=== PATIENT | female | born 1960 | race Caucasian/White ===

== ENCOUNTER 2025-05-21 08:47 | Observation (INO) ==
--- NOTE | 2025-05-21 09:38 | Emergency Department Note ---
History of Present Illness General Chief complaint: Back Injury/Pain Stated complaint: SCIATICA PAIN,RIGHT SIDE,WORSE WITH NO TREATMENT Time Seen by Provider: 05/21/25 09:20 History of Present Illness Maximum Pain Intensity: 8 This is a 65-year-old female who presents to the emergency department via private vehicle with complaints of "right low back pain". The patient notes this past September, she began with pain to the right posterior gluteal area. No trauma or injury reported. She states that the pain has been progressively worsening since that time. She notes imaging to include MRI of the low back as well as electromyelogram. She also has undergone injections to the area. She is currently on her third prednisone taper at the present time. She notes pain is worse with sitting, standing and walking beyond just a few minutes. She notes a hard time finding a comfortable position to sit or lay. She notes the pain is in the right gluteal area and wraps around to the right hip/right inguinal/groin region on the right. It also radiates down the right leg to the toes with associated numbness/tingling depending on position, particular with weightbearing. The patient has started physical therapy and notes continued pain. She is to a point now where she notes pain is severe and is not improving. She took Tylenol at home around 5 AM. Last bowel movement was on Tuesday. She denies any associated fevers, chills, nausea or vomiting. There is no abdominal pain Home Medications Medication Instructions Recorded Confirmed Type cyclosporine 0.05 % eye drops in a 1 drp OPB Q12H 09/05/24 05/21/25 History dropperette (Restasis) latanoprost 0.005 % eye drops 1 drp OPB HS 09/05/24 05/21/25 History duloxetine 20 mg capsule,delayed 20 mg PO DAILY #90 caps 03/06/25 05/21/25 Rx release chlorthalidone 25 mg tablet 6.25 mg (1/4 x 25 mg) PO DAILY #45 04/17/25 05/21/25 Rx tabs acetaminophen 500 mg tablet 500 mg PO Q6H PRN Pain 05/21/25 05/21/25 History prednisone 20 mg tablet 20 mg PO DIRECTED 05/21/25 05/21/25 History Allergies Allergy/AdvReac Type Severity Reaction Status Date / Time No Known Drug Allergies Allergy Intermediate Unknown Verified 05/21/25 11:40 Past Med/Surg History Problem List (Updated 05/21/25 @ 18:01 by Victoriano Arellano PA-C) Intractable low back pain (Acute) Right lumbar radiculopathy (Acute) Myofascial pain Piriformis syndrome Hypercalciuria Lumbar radiculopathy Glaucoma Osteoporosis Prediabetes Medical History Nose fracture Ankle fracture (07/23/22) Surgical History H/O breast biopsy H/O colonoscopy Family History Sister Diabetes Mother Family history of skin conditions Social History Smoking Status: Never smoker Hx Alcohol Use: No Hx Substance Use: No Preferred Language: Hebrew Communication Ability: Effective Acting Professor Required: No Beliefs That Will Affect Care: None Current Living Situation: Significant Other current occupational status: retired current occupation: [employer], [employer] Other Information That Helps Us Care for You: No Feels Safe at Home: Yes Safety Concerns: Feels Safe At This Time Seatbelt Use: always Review of Systems A total of 10 systems reviewed and were otherwise negative Physical Exam Vital Signs Vital Signs - 24 hr 05/21/25 08:50 05/21/25 11:37 Temperature 36.5 C Temperature Source Temporal Artery Scan Pulse Rate 113 H Pulse Rate [Left Apical] 80 Respiratory Rate 19 16 Respiratory Effort / Characteristics Non-Labored Spontaneous Non-Labored Spontaneous Respiratory Depth Normal Normal Respiratory Pattern Regular Blood Pressure 149/72 H Blood Pressure [Left Arm] 144/64 H Blood Pressure Mean 97 Blood Pressure Mean [Left Arm] 90 Blood Pressure Position Sitting Blood Pressure Position [Left Arm] Lying Pulse Oximetry 97 94 Oxygen Delivery Method Room Air Room Air Sepsis Recent Fever Within 48 Hours No Sepsis New/Unexplained Change in Mental Status No Sepsis Action Taken by Nursing No Action Required VITAL SIGNS - Vital signs and nursing notes were reviewed. Tachycardic at 113, otherwise stable and afebrile. GENERAL -65-year-old female appearing her stated age who is in no acute distress. Communicates well with provider and answers questions appropriately. SKIN - Without rashes. No meningeal or petechial rash. HEAD - NC/AT. EYES - PERRL with EOMI bilaterally. Sclera anicteric. EARS - No deformities of external structures noted on gross examination bilaterally. NOSE - Midline and without cyanosis. No epistaxis or purulent drainage noted. MOUTH/OROPHARYNX - Without perioral cyanosis. NECK - Neck with FROM. No nuchal rigidity. LUNGS - Chest wall symmetric without accessory muscle use, intercostals retractions, or central cyanosis. Normal vesicular breath sounds CTA B/L. No wheezes, rales, or rhonchi appreciated. CARDIAC - RRR ABDOMEN - Abdominal contour normal without pulsations or visible masses. BS normoactive all four quadrants. No tenderness, palpable masses, hepatosplenomegaly, or ascites noted. EXTREMITIES - No clubbing or peripheral cyanosis. Patient is able to stand and axial load but slow to move. +5/5 strength noted in UE/LE bilaterally. Patient able to plantarflex and dorsiflex the bilateral feet/ankles actively. No dropfoot MSKthere is no reproducible tenderness overlying the right gluteal area, right low back, spinous processes of the C, T or L-spine or right hip/groin area. NEUROLOGIC - Cranial nerves II through XII grossly intact. PSYCH -alert, oriented and pleasant on exam Course Administered Medications Artificial Tears (Artificial Tears) 1 drops OP Q12H [facility] Stop: 06/20/25 12:44 Last Admin: 05/21/25 13:29 Dose: Not Given Documented By: ELANA Morphine Sulfate (Morphine Sulfate 2 Mg/Ml Carp) 2 mg IV Q2H PRN PRN Reason: Pain rated 4-10 Stop: 06/04/25 12:22 Last Admin: 05/21/25 16:34 Dose: 2 mg Documented By: YAZMIN Discontinued Medications Docusate Sodium (Docusate Sodium 100 Mg Cap) 100 mg PO NOW ONE Stop: 05/21/25 12:25 Last Admin: 05/21/25 13:21 Dose: 100 mg Documented By: ELANA Duloxetine HCl (Duloxetine Hcl 20 Mg Cap) 20 mg PO DAILY JANETTE Stop: 06/20/25 12:29 Last Admin: 05/21/25 13:29 Dose: Not Given Documented By: ELANA Lidocaine (Lidocaine 5% 1 Patch) 1 patch TD NOW STA Stop: 05/21/25 09:33 Last Admin: 05/21/25 09:41 Dose: 1 patch Documented By: ELANA Morphine Sulfate (Morphine Sulfate 2 Mg/Ml Carp) 2 mg IV NOW STA Stop: 05/21/25 09:35 Last Admin: 05/21/25 09:41 Dose: 2 mg Documented By: ELANA Morphine Sulfate (Morphine Sulfate 2 Mg/Ml Carp) 2 mg IV NOW STA Stop: 05/21/25 11:20 Last Admin: 05/21/25 13:15 Dose: 2 mg Documented By: ELANA Ondansetron HCl (Ondansetron Inj 2 Mg/Ml 2 Ml Vial) 4 mg IV NOW STA Stop: 05/21/25 09:35 Last Admin: 05/21/25 09:42 Dose: 4 mg Documented By: ELANA Medical Decision Making Laboratory Data 05/21/25 09:39 05/21/25 09:39 Lab Results 05/21/25 Range/Units 09:39 WBC 10.30 (4.8-10.8) K/ul RBC 4.85 (4.20-5.40) M/uL Hgb 15.1 (12.0-16.0) g/dl Hct 42.9 (37.0-47.0) % MCV 88.5 (80.0-100.0) fL MCH 31.1 (25.0-34.0) pg MCHC 35.2 (32.0-36.0) g/dL RDW Std Deviation 48.6 H (36.4-46.3) fL RDW Coeff of Christiano 14.9 H (11.5-14.5) % Plt Count 363 (130-400) K/uL MPV 8.6 L (9.4-12.4) fL Immature Gran % (Auto) 1.0 % Neut % (Auto) 76.1 % Lymph % (Auto) 18.5 % [place] % (Auto) 3.7 % Eos % (Auto) 0.3 % Baso % (Auto) 0.4 % Neut # (Auto) 7.84 H (1.40-6.50) K/uL Lymph # (Auto) 1.91 (1.20-3.40) K/uL [place] # (Auto) 0.38 (0.11-0.59) K/uL Eos # (Auto) 0.03 (0.00-0.50) K/uL Baso # (Auto) 0.04 (0.00-0.20) K/uL Immature Gran # (Auto) 0.10 (0.01-0.20) K/uL Sodium 136 (136-145) mmol/L Potassium 3.5 (3.5-5.1) mmol/L Chloride 101 (98-107) mmol/L Carbon Dioxide 27 (21-32) mmol/L Anion Gap 8 (3-11) BUN 12 (6-23) mg/dl Creatinine 0.82 (0.6-1.2) mg/dl Est Cr Clr Drug Dosing 63.8 ml/min eGFR 79.33 BUN/Creatinine Ratio 14.6 (10-20) Glucose 118 H (70-99(Fasting)) mg/dl Calcium 9.7 (8.6-10.3) mg/dl Magnesium 2.3 (1.7-2.4) mg/dl Total Bilirubin 0.4 (0.2-1.0) mg/dl AST 22 (13-39) U/L ALT 29 (7-52) U/L Alkaline Phosphatase 53 (34-104) U/L Total Protein 7.4 (6.0-8.3) gm/dl Albumin 4.2 (3.4-5.0) gm/dl Globulin 3.2 (2.5-4.0) gm/dl Albumin/Globulin Ratio 1.3 (0.9-2) Urine Color Yellow Urine Appearance Clear (Clear) Urine pH 7.5 (4.5-7.5) Ur Specific [place] 1.002 (1.000-1.030) Urine Protein Negative (Negative) Urine Glucose (UA) Negative (Negative) Urine Ketones Negative (Negative) Urine Blood Negative (Negative) Urine Nitrite Negative (Negative) Urine Bilirubin Negative (Negative) Urine Urobilinogen Negative (Negative) Ur Leukocyte Esterase Negative (Negative) Urine Comment Imaging Data Radiologist's Impression: Lumbar Spine CT 05/21/25 09:32 CT lumbar spine wo con HISTORY: 65 years-old Female R hip/gluteal/groin pain into R leg acute pain of the low back and pelvis COMPARISON: CT pelvis of same day, MRI lumbar spine January 05, 2025 TECHNIQUE: Multiple axial CT images of the lumbar spine were obtained without IV contrast. A dose lowering technique was used consistent with the principals of ALARA. FINDINGS: Mild chronic L3 compression deformity. Mostly mild multilevel intervertebral disc space narrowing with spondylitic spurring and moderate to severe facet arthrosis are demonstrated contributing to cause mild central canal stenosis lower lumbar spine. No high-grade central canal or foraminal narrowing identified by CT. The imaged intra-abdominal structures appear unremarkable. Mild degeneration of the SI joints. No acute fracture or subluxation. IMPRESSION: 1. No acute fracture or subluxation. 2. Multilevel degenerative changes of the lumbar spine redemonstrated. 3. Mild chronic L3 compression deformity without retropulsion. ACT 112: Negative or not required by law. The above report was generated using voice recognition software. It may contain grammatical, syntax or spelling errors. Electronically signed by: Lowell Chaudhary M.D. 05/21/2025 10:[address] 05/21/25 09:32 CT SCAN OF THE PELVIS WITHOUT IV CONTRAST CLINICAL HISTORY: Right hip and gluteal pain. Right groin pain. COMPARISON STUDY: Pelvic ultrasound dated 02/22/2007 TECHNIQUE: CT scan of the bony pelvis is performed from the pelvic inlet to the proximal femora. Images are reviewed in the axial, sagittal, and coronal planes. IV contrast was not administered for this examination. A dose lowering technique was utilized adhering to the principles of ALARA. Note that interpretation is suboptimal without plain film correlate. FINDINGS: The skeletal structures are osteopenic. There is no evidence of acute fracture involving the hips or bony pelvis. There is no avascular necrosis of the femoral heads. Minimal degenerative change is seen in the hips. There is mild degenerative sclerosis of the sacroiliac joints. No lytic or blastic lesion is seen. The regional musculature is normal and symmetric. The bladder is distended but otherwise normal as imaged. The uterus is normal as visualized. There is a 2.8 x 1.6 cm calcified structure in the left adnexa seen on axial image #68 of 126. This appears localized to the left ovary. The right ovary is normal as visualized. There is no free fluid in the pelvis. Imaged portions of the small bowel and colon show no abnormality. There is no pelvic sidewall or inguinal lymphadenopathy. IMPRESSION: 1. No acute bony abnormality is identified. 2. There is a 2.8 cm calcified left adnexal structure which likely represents the left ovary, or less likely a pedunculated fibroid. The left ovary was normal in appearance on a 2006 pelvic ultrasound and this is of indeterminate etiology and significance. A nonemergent pelvic ultrasound is recommended in follow-up. ACT 112: Positive. There are findings on this exam that require communication between the performing entity and the patient following Patient Test Result Information Act ([place] Act 112) guidelines. Electronically signed by: Casey Newell M.D. 05/21/2025 10:29 AM MDM Narrative Patient was seen and evaluated as above in room C04. Review was performed of triage nursing notes and vital signs. I did review pertinent visits and patient history. After obtaining a thorough history and physical examination the above work up was performed. Patient presents to us today for evaluation of right gluteal pain that radiates down the leg. No trauma. No injury. The patient is well-appearing and nontoxic on exam but appears to be in pain. Patient denies any lower extremity weakness, bowel or bladder incontinence, numbness or tingling in the genital region. I reviewed the patient's outpatient electromyelogram dated 12/31/2024. I did review the patient's outpatient L-spine MRI dated 01/05/2025. Options of care were discussed with the patient. IV access was established. Labs were drawn. IV morphine ordered for pain, Zofran for nausea. Lidocaine patch also ordered. There is no leukocytosis or concerning anemia. No emergent metabolic disturbance. Mild hyperglycemia 118. Urinalysis without evidence of infection. A CT scan was performed of the L-spine and pelvis. Results as above. I reviewed the findings and there is no fracture seen. Incidentally there is a calcified left adnexal structure which I reviewed with the patient and recommended outpatient ultrasound and follow-up. The patient has had ongoing back pain and has had multiple steroid tapers she notes. With the continued discomfort despite outpatient regimen, I did consider inpatient management. I discussed this option with the patient. We will proceed. I reviewed with the hospitalist service. They came to evaluate the patient. Please refer to further documentation regarding her stay. GCS: 15 In the evaluation and treatment of this patient the following differential diagnoses were entertained: Cauda equina syndrome, fracture, subluxation, contusion, UTI, pyelonephritis, among others. Impression & Plan Right lumbar radiculopathy, Intractable low back pain Discharge Plan Visit Data Chief Complaint: Back Injury/Pain Stated Complaint: SCIATICA PAIN,RIGHT SIDE,WORSE WITH NO TREATMENT ED Provider: Semaj Garcia ED Midlevel Provider: Victoriano Arellano Discharge Problem: Right lumbar radiculopathy, Intractable low back pain Patient Disposition: Admitted As Inpatient Condition: Good Discharge Instructions Interventions: ED Discharge Assessment Last Done: 05/21/25 13:34
[2025-05-21] MEDS: MoRPHine SULFATE 2 MG/ML CARP IV STA ×2 (09:41→13:15)
[2025-05-21] MEDS: LIDOCAINE 5% 1 PATCH TD STA (09:41)
[2025-05-21] MEDS: ONDANSETRON INJ 2 MG/ML 2 ML VIAL IV STA (09:42)
[2025-05-21 10:01] LABS: Hematocrit (blood only) 42.9 % (37.0-47.0); Hemoglobin 15.1 g/dl (12.0-16.0); Immature Granulocytes # (auto) 0.10 K/uL (0.01-0.20); Immature Granulocytes % (auto) 1.0 %; Mean Corpuscular Hemoglobin 31.1 pg (25.0-34.0); Mean Corpuscular Volume 88.5 fL (80.0-100.0); Platelet Count 363 K/uL (130-400); RDW Standard Deviation 48.6 fL (36.4-46.3); Red Blood Count 4.85 M/uL (4.20-5.40); White Blood Count 10.30 K/ul (4.8-10.8)
[2025-05-21 10:06] LABS: Appearance Urine Clear (Clear); Glucose Urine UA Negative (Negative)
[2025-05-21 10:17] LABS: Alanine Aminotransferase 29.0 U/L (7-52); Albumin Globulin Ratio 1.3 (0.9-2); Alkaline Phosphatase 53.0 U/L (34-104); Anion Gap 8.0 (3-11); Bilirubin,Total 0.4 mg/dl (0.2-1.0); Blood Urea Nitrogen 12.0 mg/dl (6-23); Calcium 9.7 mg/dl (8.6-10.3); Carbon Dioxide 27.0 mmol/L (21-32); Chloride 101.0 mmol/L (98-107); Creatinine Clr Calc Pharmacy 63.8 ml/min; Globulin 3.2 gm/dl (2.5-4.0); Glucose 118.0 mg/dl (70-99(Fasting)); Magnesium 2.3 mg/dl (1.7-2.4); Potassium 3.5 mmol/L (3.5-5.1); Sodium 136.0 mmol/L (136-145); Total Protein 7.4 gm/dl (6.0-8.3)
--- NOTE | 2025-05-21 10:32 | CT Scan Report ---
CT SCAN OF THE PELVIS WITHOUT IV CONTRAST CLINICAL HISTORY: Right hip and gluteal pain. Right groin pain. COMPARISON STUDY: Pelvic ultrasound dated 02/22/2007 TECHNIQUE: CT scan of the bony pelvis is performed from the pelvic inlet to the proximal femora. Ban ges are reviewed in the axial, sagittal, and coronal planes. IV contrast was not administered for thi s examination. A dose lowering technique was utilized adhering to the principles of ALARA. Note that interpretation is suboptimal without plain film correlate. FINDINGS: The skeletal structures are osteopenic. There is no evidence of acute fracture involving th e hips or bony pelvis. There is no avascular necrosis of the femoral heads. Minimal degenerative dennison ge is seen in the hips. There is mild degenerative sclerosis of the sacroiliac joints. No lytic or bl astic lesion is seen. The regional musculature is normal and symmetric. The bladder is distended but otherwise normal as imaged. The uterus is normal as visualized. There is a 2.8 x 1.[address]ified str ucture in the left adnexa seen on axial image #68 of 126. This appears localized to the left ovary. T he right ovary is normal as visualized. There is no free fluid in the pelvis. Imaged portions of the small bowel and colon show no abnormality. There is no pelvic sidewall or inguinal lymphadenopathy. IMPRESSION: 1. No acute bony abnormality is identified. 2. There is a 2.8 cm calcified left adnexal structure which likely represents the left ovary, or less likely a pedunculated fibroid. The left ovary was normal in appearance on a 2006 pelvic ultrasound a nd this is of indeterminate etiology and significance. A nonemergent pelvic ultrasound is recommended in follow-up. ACT 112: Positive. There are findings on this exam that require communication between the performing entity and the patient following Patient Test Result Information Act ([place] Act 112) guidelines. Electronically signed by: Casey Newell M.D. 05/21/2025 10:29 AM
--- NOTE | 2025-05-21 10:41 | CT Scan Report ---
CT lumbar spine wo con HISTORY: 65 years-old Female R hip/gluteal/groin pain into R leg acute pain of the low back and pelv is COMPARISON: CT pelvis of same day, MRI lumbar spine January 05, 2025 TECHNIQUE: Multiple axial CT images of the lumbar spine were obtained without IV contrast. A dose low ering technique was used consistent with the principals of AMARILIS. FINDINGS: Mild chronic L3 compression deformity. Mostly mild multilevel intervertebral disc space narrowing wit h spondylitic spurring and moderate to severe facet arthrosis are demonstrated contributing to cause mild central canal stenosis lower lumbar spine. No high-grade central canal or foraminal narrowing id entified by CT. The imaged intra-abdominal structures appear unremarkable. Mild degeneration of the SI joints. No acu te fracture or subluxation. IMPRESSION: 1. No acute fracture or subluxation. 2. Multilevel degenerative changes of the lumbar spine redemonstrated. 3. Mild chronic L3 compression deformity without retropulsion. ACT 112: Negative or not required by law. The above report was generated using voice recognition software. It may contain grammatical, syntax o r spelling errors. Electronically signed by: Lowell Chaudhary M.D. 05/21/2025 10:39 AM
[2025-05-21] MEDS: DOCUSATE SODIUM 100 MG CAP PO ONE (13:21)
[2025-05-21] MEDS: ARTIFICIAL TEARS OP SCH (13:29)
[2025-05-21] MEDS: MoRPHine SULFATE 2 MG/ML CARP IV PRN (16:34)
--- NOTE | 2025-05-21 18:02 | History & Physical Report ---
Date of Service May 21, 2025 Assessment & Plan (1) Intractable low back pain: Plan: As above in the History of Present Illness. (2) Left streak ovary: Plan: As above in the History of Present Illness. 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 On October 10, 2024, the day before 2023, I felt a pain in my right butt. I did not fall down. I did not bump into anything or hit anything, and nothing bumped into me or hit me in my right butt. Still, I could not walk because of that pain in my right but. So, on October 22, 2024, I got a prescription for prednisone 10mg a day from my PCP Dr. Ambreen Walker, and that helped me for a while. Then, the pain in my right butt came back. So, on January 04, 2025, I got a prescription for methylprednisolone 4mg a day from my PCP Dr. Ambreen Walker, and that helped me for a while. Then, the pain in my right butt came back. So, on January 17, 2025, I got an epidural injection in my lower back from [facility] Dr. Osbaldo Eng, and that helped me for a while. Then, the pain in my right butt came back. So, on April 17, 2025, I got 3 pain shots in my butt from [facility] Dr. Evelin Cabrera, and that helped me for a while. Then, the pain in my right butt came back and it is going down to my right foot and all of the toes in my right foot. First, my right foot and toes felt numb, now they feel tingly. I don't know if the pain in my right foot has anything to do with the fact that I have not had a bowel movement since Tuesday (May 17, 2025). Normally, I have a bowel movement every day. I do not feel any belly pain; I do not feel nauseated, and I am not having any vomit or diarrhea. I got a morphine shot (e.g., morphine 2mg IV x 1 dose on 05/21/2025, 9:41am) and that helped me a lot. The pain in my right butt was an 8 (out of 10 point intensity scale) before the morphine shot (e.g., morphine 2mg IV x 1 dose on 05/21/2025, 9:41am). Now, it is a 2 (out of 10 point intensity scale)." Primary Care Provider: Ambreen Walker DO 65 years old Kyrgyz-speaking Ethiopian female with PMH of FULL CODE @ home, overweight with BMI 27.0 (height 160.0 cm; weight 69.2 kg), who reports: "On September 14, 2024, I felt a commissary superintendent my right butt. On October 10, 2024, the day before 2023, I felt a pain in my right butt. I did not fall down. I did not bump into anything or hit anything, and nothing bumped into me or hit me in my right butt. Still, I could not walk because of that pain in my right but. So, on October 22, 2024, I got a prescription for prednisone 10mg a day from my PCP Dr. Ambreen Walker, and that helped me for a while. Then, the pain in my right butt came back. So, on January 04, 2025, I got a prescription for methylprednisolone 4mg a day from my PCP Dr. Ambreen Walker, and that helped me for a while. Then, the pain in my right butt came back. So, on January 17, 2025, I got an epidural injection in my lower back from [facility] Dr. Osbaldo Eng, and that helped me for a while. Then, the pain in my right butt came back. So, on April 17, 2025, I got 3 pain shots in my butt from [facility] Dr. Evelin Cabrera, and that helped me for a while. Then, the pain in my right butt came back and it is going down to my right foot and all of the toes in my right foot. First, my right foot and toes felt numb, now they feel tingly. I don't know if the pain in my right foot has anything to do with the fact that I have not had a bowel movement since Tuesday (May 17, 2025). Normally, I have a bowel movement every day. I do not feel any belly pain; I do not feel nauseated, and I am not having any vomit or diarrhea. I got a morphine shot (e.g., morphine 2mg IV x 1 dose on 05/21/2025, 9:41am) and that helped me a lot. The pain in my right butt was an 8 (out of 10 point intensity scale) before the morphine shot (e.g., morphine 2mg IV x 1 dose on 05/21/2025, 9:41am). Now, it is a 2 (out of 10 point intensity scale)." Patient denies antecedent/coincident fevers, chills, diaphoresis, cough, wheeze, sore throat, hemoptysis, chest pains, palpitations, pleurisy, nausea, vomiting, diarrhea, abdominal pain, pelvic pain, hematemesis, hematochezia, melena, hematuria, dysuria, frequency, urgency, headaches, dizziness, lightheadedness, visual changes, hearing changes, weakness, falls, syncope, trauma, travel history, sick contacts, or food/drug ingestions novel or new. All other review of systems are reported as negative by the patient on observation date 05/21/2025. In [facility] ER bed #C4, patient was afebrile @ 36.5 degrees Celsius, HR 113, RR 19, O2 sat 97% on room air, and BP 149/72 (05/21/2025, 8:50am). Exam was noted for positive radiculopathy on right straight leg ra ising, not left straight leg raising. In addition, patient demonstrated 5/5 motor strength in all 4 extremities, both proximally and distally, with no myoclonus, tremors, or tics. In addition, there was no perineal numbness, urinary/fecal incontinence, or decrement in 2 point discrimination with a 4mm spread on either lower extremity. Labs in [facility] ER bed #C4 included: WBC 10.3, N76 L19 M4, Hb 15.1, MCV 88.5, MCHC 35.2, platelet 363 (05/21/2025, 9:39am). Na 136, K 3.5, BUN 12, creatinine 0.82, glucose 118, Ca 9.7, Mg 2.3, AST 22, ALT 29, ALK PHOS 53, TBili 0.4 (05/21/2025, 9:39am). U/A: LE-, nitrite- (05/21/2025, 9:39am). Additional testing in [facility] ER bed #C4 included: CT lumbar spine without contrast (05/21/2025, 9:32am): 1. No acute fracture or subluxation. 2. Multilevel degenerative changes of the lumbar spine redemonstrated. 3. Mild chronic L3 compression deformity without retropulsion. CT pelvis without contrast (05/21/2025, 9:32am): 1. No acute bony abnormality is identified. 2. 2.8 cm calcified L adnexal structure likely represents the left ovary, or less likely a pedunculated fibroid. Left ovary was normal in appearance on 2006 pelvic U/S and this is of indeterminate etiology and significance. Nonemergent pelvic U/S is recommended. Patient was subsequently placed in OBSERVATION on the hospitalist service @ [facility] on 05/21/2025 with the following diagnoses: 1. Intractable right gluteal pain due to chronic L3 compression fracture. 2. Incidental finding of 2.8 cm L adnexal structure, most likely to represent L ovary. To address #1, patient was started on tylenol 650mg PO q6 prn pain 1-3, headache, temp > 100.4 degrees Fahrenheit, morphine 2mg IV q2 prn pain 4-10. Patient awaits PT/OT/Case Mgm't Service evaluations to expedite D/C to SNF for short-term rehab and continued pain management as there are no acute medical issues on observation date 05/21/2025. To address #2, patient was advised to undergo outpatient pelvic U/S, which can be coordinated with her PCP Dr. Ambreen Walker. Allergies Allergy/AdvReac Type Severity Reaction Status Date / Time No Known Drug Allergies Allergy Intermediate Unknown Verified 05/21/25 11:40 Home Medications Medication Instructions Recorded Confirmed Type cyclosporine 0.05 % eye drops in a 1 drp OPB Q12H 09/05/24 05/21/25 History dropperette (Restasis) latanoprost 0.005 % eye drops 1 drp OPB HS 09/05/24 05/21/25 History duloxetine 20 mg capsule,delayed 20 mg PO DAILY #90 caps 03/06/25 05/21/25 Rx release chlorthalidone 25 mg tablet 6.25 mg (1/4 x 25 mg) PO DAILY #45 04/17/25 05/21/25 Rx tabs acetaminophen 500 mg tablet 500 mg PO Q6H PRN Pain 05/21/25 05/21/25 History prednisone 20 mg tablet 20 mg PO DIRECTED 05/21/25 05/21/25 History Past Med/Surg History Problem List (Updated 05/21/25 @ 18:30 by Caesar Mendez MD, PhD) Left streak ovary Intractable low back pain (Acute) Right lumbar radiculopathy (Acute) Myofascial pain Piriformis syndrome Hypercalciuria Lumbar radiculopathy Glaucoma Osteoporosis Prediabetes Medical History Nose fracture Ankle fracture (07/23/22) Nondisplaced fracture of the left distal fibula, distal to the tibial plafond from a fall Surgical History H/O breast biopsy H/O colonoscopy every 5 years now. h/o polyps. Family History Sister Diabetes Mother , at 72 years of age from hayden-operative complications associated with bladder tack procedure @ [facility] ([place], [place]). Family history of skin conditions Father , at 82 years of age from acute respiratory failure due to long-standing tobacco abuse. No problems noted. 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 Physical Exam Constitutional: General: Comfortable, coherent, cooperative. Awake, alert. Not confused, lethargic, or obtunded. Patient speaks in complete, fluent, and articulate sentences without pause, interruption, cough, or wheeze. HEENT: Normocephalic, atraumatic. Pupils equally round and reactive to light. No nystagmus, gaze paresis, anisocoria, miosis, mydriasis, hyphema, scleral injection, conjunctivitis, or pterygium. No otorrhea. No pharyngeal erythema, edema, or discharge. Neck: Supple, no stridor, bruit, goiter, or hepato-jugular reflux. Jugular venous pressure is estimated to be 3 cm above the sternal angle of Renaldo, which in turn, is 5 cm above the level of the right atrium; with jugular venous pressure estimated to be 8 cm, then, there is no jugular venous distention on 05/21/2025. Lymphatics: No cervical (anterior/posterior), supraclavicular, infraclavicular, axillary, epitrochlear, or inguinal adenopathy. Chest: Symmetric rise and fall with respirations. Non-tender to palpation. Lungs: Clear to auscultation and percussion. No audible expiratory wheeze, egophony, pectoriloquy, increase in tactile fremitus, or flatness/dullness to percussion at the bases. Heart: RRR. S1 and S2 noted. No S3 or S4 summation gallop. No tripartite friction rub. Grade II/ early systolic murmur @ LLSB without radiation to the carotids, axilla, or back, and which remains invariant in regards to the respiratory cycle. Abdomen: Soft, non-distended, non-tender. No rebound, guarding, Farmer's sign, or organomegaly. Bowel sounds auscultated in all 4 quadrants. Extremities: No clubbing, cyanosis, or edema in upper extremities or lower extremities bilaterally. 2+ pedal pulses bilaterally. Skin: No decubitus ulcer or enanthem. Genito-urinary: No urethral discharge. No miller catheter. Neurology: Alert and oriented in regards to person, place, time, and situation. DTR+. Positive radiculopathy on right straight leg raising, not left straight leg raising. In addition, patient demonstrated 5/5 motor strength in all 4 extremities, both proximally and distally, with no myoclonus, tremors, or tics. In addition, there was no perineal numbness, urinary/fecal incontinence, or decrement in 2 point discrimination with a 4mm spread on either lower extremity. Psychiatry: No homicidal ideation. No suicidal ideation. No flat affect; smiles appropriately. Results & Data Results & Data Vital Signs (Past 12 Hours) Vital Signs Temp Pulse Pulse Pulse Resp BP BP 05/21/25 17:10 37.1 C 87 15 126/71 05/21/25 16:58 95 H 18 129/66 05/21/25 15:01 83 16 140/71 05/21/25 11:37 80 16 144/64 H 05/21/25 08:50 36.5 C 113 H 19 149/72 H Pulse Ox O2 Del Method 05/21/25 17:10 90 Room Air 05/21/25 16:58 95 Room Air 05/21/25 15:01 95 Room Air 05/21/25 11:37 94 Room Air 05/21/25 08:50 97 Room Air Laboratory Results As above in the History of Present Illness. Diagnostic Findings As above in the History of Present Illness. Medications Administered As above in the History of Present Illness. Code Status & VTE Plan VTE Prophylaxis Plan VTE Prophylaxis will be ordered: Yes PG Care Time/CCT Total # of Minutes Spent Total Time Spent with Patient: Total time spent is greater than 50% in coordination of care (as documented) at patient's floor/unit and/or counseling patient: Coding Level of Care Code 39641 INT INP/OBS CARE 2/55MIN Diagnoses Intractable low back pain M54.59 Left streak ovary Q50.32
[2025-05-21] MEDS: HEPARIN SOD 5,000 UNIT/0.5 ML VIAL SQ SCH (20:25)
[2025-05-21] MEDS: LATANOPROST 0.005% OP SOLN 2.5 ML BTL OPB SCH (20:26)
[2025-05-21] MEDS ORDERED: REMOVE LIDODERM PATCH SCH (21:00)
--- NOTE | 2025-05-22 08:10 | Discharge Summary ---
Discharge Summary Date of Service May 22, 2025 Principal Dx & Hospital Course #1 = Principal Diagnosis (1) Intractable low back pain: To address #1, patient was started on tylenol 650mg PO q6 prn pain 1-3, headache, temp > 100.4 degrees Fahrenheit, morphine 2mg IV q2 prn pain 4-10. Patient awaits PT/OT/Case Mgm't Service evaluations to expedite D/C to SNF for short-term rehab and continued pain management as there are no acute medical issues on observation date 05/21/2025. (2) Left streak ovary: To address #2, patient was advised to undergo outpatient pelvic U/S, which can be coordinated with her PCP Dr. Ambreen Walker. 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 On October 10, 2024, the day before 2023, I felt a pain in my right butt. I did not fall down. I did not bump into anything or hit anything, and nothing bumped into me or hit me in my right butt. Still, I could not walk because of that pain in my right but. So, on October 22, 2024, I got a prescription for prednisone 10mg a day from my PCP Dr. Ambreen Walker, and that helped me for a while. Then, the pain in my right butt came back. So, on January 04, 2025, I got a prescription for methylprednisolone 4mg a day from my PCP Dr. Ambreen Walker, and that helped me for a while. Then, the pain in my right butt came back. So, on January 17, 2025, I got an epidural injection in my lower back from [facility] Dr. Osbaldo Eng, and that helped me for a while. Then, the pain in my right butt came back. So, on April 17, 2025, I got 3 pain shots in my butt from [facility] Dr. Evelin Cabrera, and that helped me for a while. Then, the pain in my right butt came back and it is going down to my right foot and all of the toes in my right foot. First, my right foot and toes felt numb, now they feel tingly. I don't know if the pain in my right foot has anything to do with the fact that I have not had a bowel movement since Tuesday (May 17, 2025). Normally, I have a bowel movement every day. I do not feel any belly pain; I do not feel nauseated, and I am not having any vomit or diarrhea. I got a morphine shot (e.g., morphine 2mg IV x 1 dose on 05/21/2025, 9:41am) and that helped me a lot. The pain in my right butt was an 8 (out of 10 point intensity scale) before the morphine shot (e.g., morphine 2mg IV x 1 dose on 05/21/2025, 9:41am). Now, it is a 2 (out of 10 point intensity scale)." Patient denies antecedent/coincident fevers, chills, diaphoresis, cough, wheeze, sore throat, hemoptysis, chest pains, palpitations, pleurisy, nausea, vomiting, diarrhea, abdominal pain, pelvic pain, hematemesis, hematochezia, melena, hematuria, dysuria, frequency, urgency, headaches, dizziness, lightheadedness, visual changes, hearing changes, weakness, falls, syncope, trauma, travel history, sick contacts, or food/drug ingestions novel or new. All other review of systems are reported as negative by the patient on observation date 05/21/2025. In [facility] ER bed #C4, patient was afebrile @ 36.5 degrees Celsius, HR 113, RR 19, O2 sat 97% on room air, and BP 149/72 (05/21/2025, 8:50am). Exam was noted for positive radiculopathy on right straight leg raising, not left straight leg raising. In addition, patient demonstrated 5/5 motor strength in all 4 extremities, both proximally and distally, with no myoclonus, tremors, or tics. In addition, there was no perineal numbness, urinary/fecal incontinence, or decrement in 2 point discrimination with a 4mm spread on either lower extremity. Labs in [facility] ER bed #C4 included: WBC 10.3, N76 L19 M4, Hb 15.1, MCV 88.5, MCHC 35.2, platelet 363 (05/21/2025, 9:39am). Na 136, K 3.5, BUN 12, creatinine 0.82, glucose 118, Ca 9.7, Mg 2.3, AST 22, ALT 29, ALK PHOS 53, TBili 0.4 (05/21/2025, 9:39am). U/A: LE-, nitrite- (05/21/2025, 9:39am). Additional testing in [facility] ER bed #C4 included: CT lumbar spine without contrast (05/21/2025, 9:32am): 1. No acute fracture or subluxation. 2. Multilevel degenerative changes of the lumbar spine redemonstrated. 3. Mild chronic L3 compression deformity without retropulsion. CT pelvis without contrast (05/21/2025, 9:32am): 1. No acute bony abnormality is identified. 2. 2.8 cm calcified L adnexal structure likely represents the left ovary, or less likely a pedunculated fibroid. Left ovary was normal in appearance on 2006 pelvic U/S and this is of indeterminate etiology and significance. Nonemergent pelvic U/S is recommended. Patient was subsequently placed in OBSERVATION on the hospitalist service @ [facility] on 05/21/2025 with the following diagnoses: 1. Intractable right gluteal pain due to chronic L3 compression fracture. 2. Incidental finding of 2.8 cm L adnexal structure, most likely to represent L ovary. To address #1, patient was started on tylenol 650mg PO q6 prn pain 1-3, headache, temp > 100.4 degrees Fahrenheit, morphine 2mg IV q2 prn pain 4-10. Patient awaits PT/OT/Case Mgm't Service evaluations to expedite D/C to SNF for short-term rehab and continued pain management as there are no acute medical issues on observation date 05/21/2025. To address #2, patient was advised to undergo outpatient pelvic U/S, which can be coordinated with her PCP Dr. Ambreen Walker. Discharge Exam Constitutional General: Comfortable, coherent, cooperative. Awake, alert. Not confused, lethargic, or obtunded. Patient speaks in complete, fluent, and articulate sentences without pause, interruption, cough, or wheeze. HEENT: Normocephalic, atraumatic. Pupils equally round and reactive to light. No nystagmus, gaze paresis, anisocoria, miosis, mydriasis, hyphema, scleral injection, conjunctivitis, or pterygium. No otorrhea. No pharyngeal erythema, edema, or discharge. Neck: Supple, no stridor, bruit, goiter, or hepato-jugular reflux. Jugular venous pressure is estimated to be 3 cm above the sternal angle of Renaldo, which in turn, is 5 cm above the level of the right atrium; with jugular venous pressure estimated to be 8 cm, then, there is no jugular venous distention on 05/22/2025. Lymphatics: No cervical (anterior/posterior), supraclavicular, infraclavicular, axillary, epitrochlear, or inguinal adenopathy. Chest: Symmetric rise and fall with respirations. Non-tender to palpation. Lungs: Clear to auscultation and percussion. No audible expiratory wheeze, egophony, pectoriloquy, increase in tactile fremitus, or flatness/dullness to percussion at the bases. Heart: RRR. S1 and S2 noted. No S3 or S4 summation gallop. No tripartite friction rub. Grade II/ early systolic murmur @ LLSB without radiation to the carotids, axilla, or back, and which remains invariant in regards to the respiratory cycle. Abdomen: Soft, non-distended, non-tender. No rebound, guarding, Farmer's sign, or organomegaly. Bowel sounds auscultated in all 4 quadrants. Extremities: No clubbing, cyanosis, or edema in upper extremities or lower extremities bilaterally. 2+ pedal pulses bilaterally. Skin: No decubitus ulcer or enanthem. Genito-urinary: No urethral discharge. No miller catheter. Neurology: Alert and oriented in regards to person, place, time, and situation. DTR+. Positive radiculopathy on right straight leg raising, not left straight leg raising. In addition, patient demonstrated 5/5 motor strength in all 4 extremities, both proximally and distally, with no myoclonus, tremors, or tics. In addition, there was no perineal numbness, urinary/fecal incontinence, or decrement in 2 point discrimination with a 4mm spread on either lower extremity. Psychiatry: No homicidal ideation. No suicidal ideation. No flat affect; smiles appropriately. Discharge Plan Discharge Items Patient Disposition: Transfer Half-Way Fac Reason For Visit: CHRONIC L3 COMPRESSION FRACTURE WITH INTRACTABLE P Discharge Diagnosis: Chronic L3 compression fracture with intractable pain Condition on Discharge: Good Activity: Resume your previous activity Lifting: Gradually increase as tolerated Bathing: No limitations Sexual Activity: When tolerated Exercise/Sports: Gradually increase as tolerated Driving/Machine Use: No limitations Non-emergency contact: Primary Care Provider Call non-emergency contact if: you have any medication questions Follow-up/Referrals: Ambreen Walker DO [Primary Care Provider] - Diet: Heart Healthy Addtl Attending Provider Instructions: See your PCP Dr. Ambreen Walker within 5-7 days of hospital discharge. Pending Studies at Discharge: No Stand-Alone Forms: [facility] Skilled Items Patient informed of condition?: Yes DNR: No Discharge Level of Care: Skilled Communicable Disease: No Discharge Prognosis: Stable Lines: None Urinary Catheter: No Medications and DC Order Prescriptions: New morphine 15 mg tablet 15 mg PO Q6H PRN (Reason: pain) Qty: 20 0RF Continued duloxetine 20 mg capsule,delayed release(DR/EC) 20 mg PO DAILY Qty: 90 0RF Hold Instructions: wants to continue holding latanoprost 0.005 % drops 1 drp OPB HS cyclosporine [Restasis] 0.05 % dropperette 1 drp OPB Q12H chlorthalidone 25 mg tablet 6.25 mg PO DAILY Qty: 45 2RF acetaminophen 500 mg Tablet 500 mg PO Q6H PRN (Reason: Pain) prednisone 20 mg tablet 20 mg PO DIRECTED Rx Instructions: Start Date 05/14/25 x 15 day supply: 3 tablets PO x 3 days; 2 tablets PO x 3 days; 1 tablets PO x 3 days; 1/2 tablet PO x 4 days Discharge Orders: Discharge Order (Routine); Ordered 05/22/25 Ordered By: Caesar Mendez Admission Data Admit Date/Time: 05/21/25 12:20 Attending Provider: Caesar Mendez Admit Provider: Caesar Mendez Primary Care Provider: Ambreen Walker Other Providers: Fritz Wiley Hospital Stay Data Consultations 05/21/25 11:23 ED Decision to Admit Stat Diagnostic Imagining Performed 05/21/25 09:32 CT lumbar spine wo con Stat CT pelvis wo con Stat Pending Results Patient Have Any Pending Studies at Discharge: No Discharge Instructions Given to Patient (Per Discharging Provider) See your PCP Dr. Ambreen Walker within 5-7 days of hospital discharge. Total Time Total Time Spent Total Time Spent (In Minutes): 35 minutes. Of this time period, 19 minutes were spent in coordinating patient's discharge. Coding Level of Care Code 61155 INP/OBS DISCH >30 MIN Diagnoses Intractable low back pain M54.59 Left streak ovary Q50.32
[2025-05-22] MEDS: ACETAMINOPHEN 325 MG TAB PO PRN (09:23)
[2025-05-22] MEDS: MAGNESIUM CITRATE 296 ML/BTL PO STA (11:34)
--- NOTE | 2025-05-22 13:54 | Magnetic Resonance Report ---
MRI OF THE LUMBAR SPINE WITHOUT CONTRAST CLINICAL HISTORY: intractable R leg pain radiating to R foot/toes COMPARISON STUDY: Lumbar spine MRI January 05, 2025. Lumbar spine CT May 21, 2025. TECHNIQUE: Utilizing a 3 Radha magnet and dedicated coil, multiplanar, multiecho imaging of the lumb ar spine was performed without IV contrast. FINDINGS: For purposes of numbering on this exam, the L5-S1 disc space is assigned to axial image 23 of 25. An old mild L3 compression deformity is unchanged. No acute lumbar spine fractures are present. There is no marrow replacement. There is no intracanalicular mass or fluid collection. Conus terminates at th e lower T12 level. L1-2: The central canal and neural foramen are patent. L2-3: The central canal and neural foramen are patent. L3-4: There is slight disc space narrowing with minimal disc bulge. There is moderate facet arthrosis . The central canal and neural foramen are patent. L4-5: There is moderate facet arthrosis. The central canal and neural foramen are patent. L5-S1: Minimal disc bulge. There is moderate facet arthrosis. The central canal and neural foramen ar e patent. IMPRESSION: 1. No acute process within the lumbar spine prior MRI. 2. No change in old mild L3 compression deformity. No acute lumbar spine fractures. 3. Minimal degenerative disc disease and moderate facet arthrosis within the lumbar spine. Patent neville tral canal and neural foramen. ACT 112: Negative or not required by law. Electronically signed by: Fredis Zamora M.D. 05/22/2025 1:53 PM
--- NOTE | 2025-05-22 14:01 | Magnetic Resonance Report ---
MR thoracic spine wo con HISTORY: 65 years-old Female intractable R leg pain radiating to R foot/toes acute mid back pain wit h right lower extremity radicular symptoms COMPARISON: CT pelvis and lumbar spine study 05/21/2025, MR lumbar spine 05/22/2025 and also January 05, 2025. TECHNIQUE: Multiplanar multisequence MRI of the thoracic spine was obtained without IV contrast FINDINGS: Motion degraded exam. The imaged extraspinal thoracic structures appear unremarkable. Cholelithiasis with mild gallbladder distention. Subcentimeter T2 hyperintense focus of the superior pole right kidn ey is too small to characterize, likely a cyst. MR lumbar spine dictated separately. T1 and T2 hyperi ntense foci of the T3 and T9 vertebral bodies are suggestive of probable bone island. No acute fractu re, subluxation, endplate erosion or significant marrow edema. No epidural or paraspinal fluid collec tions are seen. Normal signal within the thoracic spinal cord. Conus medullaris terminates at T12-L1. Mild intervertebral disc space narrowing and spondylitic spurring is most pronounced at T5-T9. There is a 4 mm central/right paracentral disc protrusion at T7-T8. There is no significant central canal o r foraminal narrowing identified. IMPRESSION: 1. No acute fracture, subluxation or significant marrow edema. 2. Mild discogenic degeneration of the mid thoracic spine without significant central canal or forami nal narrowing. 3. Distended gallbladder with cholelithiasis. ACT 112: Negative or not required by law. The above report was generated using voice recognition software. It may contain grammatical, syntax o r spelling errors. Electronically signed by: Lowell Chaudhary M.D. 05/22/2025 1:59 PM
[2025-05-22 15:01] VITALS: RESP 16
[2025-05-22] MEDS: predniSONE 20 MG TAB PO STA (18:06)
[2025-05-23 08:28] VITALS: O2SAT 95
--- NOTE | 2025-05-23 10:13 | Pain Management Consultation ---
Date of Consultation May 23, 2025 Assessment & Plan (1) Intractable low back pain: (2) Myofascial pain: (3) Piriformis syndrome: (4) Lumbar radiculopathy: (5) Compression fracture of L3 vertebra: Plan 1. Recommend the addition of a muscle relaxer. I have placed an order for Fle xeril. Side effect profile was reviewed with the patient. 2. Patient does have some right SI joint pain as well as gluteal pain. She is describing a skin hypersensitivity along the right leg - with a breeze, fan, or running water. She has failed to realize any relief from a lumbar epidural steroid injection as well as trigger point injections. With minimal findings on lumbar MRI and that there was no improvement from lumbar epidural steroid injection, I do not think that her symptoms are related to lumbar radiculopathy. 3. She does have a mild chronic L3 compression fracture. Patient is unsure how old this is and does not recall and specific injury. Her current pain is likely unrelated to this chronic fx. 4. Recommend that the patient continue with physical therapy. 5. Recommend she keep follow up with the pain clinic on an outpatient basis. 6. Consider a lower extremity EMG on an outpatient basis. 7. Right foot pain - she could consider seeing podiatry. History of Present Illness Attending Physician: Caesar Mendez MD, PhD History of Present Illness This is a 65-year-old female that is known to the [facility] pain service with a history of right buttock pain and radicular sensation down the lateral aspect of the right leg to the foot. Although there were minimal changes on the lumbar MRI we did pursue a L5-S1 interlaminar epidural steroid injection for diagnostic/therapeutic purposes. The procedure was not effective towards dim inishing her pain so we then pursue ultrasound-guided right piriformis and gluteal trigger point injections which also were ineffective. She states that the primary pain is in the right buttock area and is aggravated with prolonged walking and sitting. Positional changes did provide mild pain relief. Rather than lumbar radiculopathy symptoms, she is describing hypersensitivity along the skin down the right leg. She uses examples as hypersensitivity with running hot water in the shower, as well as a wilfrido of wind or fans running seems to aggravate this right leg pain and discomfort. Patient does have a mild old compression fracture at L3 to which the patient is unsure of any injury and denies any pain at that area. She did have an episode of significant right groin pain and felt like she was experiencing a hernia but it did resolve after a few minutes. Patient denies any bowel/bladder incontinence, saddle anesthesia, foot drop, leg weakness, falls. She does plan to be discharged to a rehab facility and referrals have already been sent. Allergies Allergy/AdvReac Type Severity Reaction Status Date / Time No Known Drug Allergies Allergy Intermediate Unknown Verified 05/21/25 11:40 Home Medications Medication Instructions Recorded Confirmed Type cyclosporine 0.05 % eye drops in a 1 drp OPB Q12H 09/05/24 05/21/25 History dropperette (Restasis) latanoprost 0.005 % eye drops 1 drp OPB HS 09/05/24 05/21/25 History duloxetine 20 mg capsule,delayed 20 mg PO DAILY #90 caps 03/06/25 05/21/25 Rx release chlorthalidone 25 mg tablet 6.25 mg (1/4 x 25 mg) PO DAILY #45 04/17/25 05/21/25 Rx tabs acetaminophen 500 mg tablet 500 mg PO Q6H PRN Pain 05/21/25 05/21/25 History prednisone 20 mg tablet 20 mg PO DIRECTED 05/21/25 05/21/25 History morphine 15 mg immediate release 15 mg PO Q6H PRN pain #20 tabs 05/22/25 Rx tablet cyclobenzaprine 10 mg tablet 10 mg PO TID #90 tabs 05/23/25 Rx pantoprazole 40 mg tablet,delayed 40 mg PO QAM #3 tabs 05/23/25 Rx release prednisone 10 mg tablet 10 mg PO DAILY #3 tabs 05/23/25 Rx Patient History Medical History Nose fracture Ankle fracture (07/23/22) Nondisplaced fracture of the left distal fibula, distal to the tibial plafond from a fall Surgical History H/O breast biopsy H/O colonoscopy every 5 years now. h/o polyps. Family History (Updated 05/21/25 @ 18:26 by Caesar Mendez MD, PhD) Sister Diabetes Mother , at 72 years of age from hayden-operative complications associated with bladder tack procedure @ [facility] ([place], [place]). Family history of skin conditions Father , at 82 years of age from acute respiratory failure due to long-standing tobacco abuse. No problems noted. 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 HEAD/FACE: Normocephalic and atraumatic. EYES: No drainage or conjunctival injection. ENT: Nose without bleeding or discharge. Oral mucosa moist. NECK: Full ROM without apparent pain. No swelling or masses noted. RESPIRATORY: Patient with unlabored breathing. No signs of respiratory distress. CHEST/AXILLA: Chest movement symmetrical. No deformities noted. ABDOMEN/GI: No distension BACK: Normal lumbar lordosis. Full range of motion in all planes. No midline or facet joint tenderness. No tenderness along the SI joints. Mild tenderness along the right piriformis musculature. SKIN: [place], warm and dry. No rash noted. MS/EXTREMITY: 5/5 strength of the bilateral lower extremities. Full range of motion of the hips. No tenderness of the right greater trochanteric bursa. Negative FABIANA maneuver. Negative straight leg raise. NEURO: Alert and appears oriented. Speech is fluent. Cranial Nerves are grossly intact. Normal gait. PSYCH: Alert, pleasant, affect is calm Results (Pain Clinic) Diagnostic Review MRI Findings: MR thoracic spine wo con HISTORY: 65 years-old Female intractable R leg pain radiating to R foot/toes acute mid back pain with right lower extremity radicular symptoms COMPARISON: CT pelvis and lumbar spine study 05/21/2025, MR lumbar spine 05/22/2025 and also January 05, 2025. TECHNIQUE: Multiplanar multisequence MRI of the thoracic spine was obtained without IV contrast FINDINGS: Motion degraded exam. The imaged extraspinal thoracic structures appear unremarkable. Cholelithiasis with mild gallbladder distention. Subcentimeter T2 hyperintense focus of the superior pole right kidney is too small to characterize, likely a cyst. MR lumbar spine dictated separately. T1 and T2 hyp erintense foci of the T3 and T9 vertebral bodies are suggestive of probable bone island. No acute fracture, subluxation, endplate erosion or significant marrow edema. No epidural or paraspinal fluid collections are seen. Normal signal within the thoracic spinal cord. Conus medullaris terminates at T12-L1. Mild intervertebral disc space narrowing and spondylitic spurring is most pronounced at T5-T9. There is a 4 mm central/right paracentral disc protrusion at T7-T8. There is no significant central canal or foraminal narrowing identified. IMPRESSION: 1. No acute fracture, subluxation or significant marrow edema. 2. Mild discogenic degeneration of the mid thoracic spine without significant central canal or foraminal narrowing. 3. Distended gallbladder with cholelithiasis. ACT 112: Negative or not required by law. The above report was generated using voice recognition software. It may contain grammatical, syntax or spelling errors. Electronically signed by: Lowell Chaudhary M.D. 05/22/2025 1:59 PM MRI OF THE LUMBAR SPINE WITHOUT CONTRAST CLINICAL HISTORY: intractable R leg pain radiating to R foot/toes COMPARISON STUDY: Lumbar spine MRI January 05, 2025. Lumbar spine CT May 21, 2025. TECHNIQUE: Utilizing a 3 Radha magnet and dedicated coil, multiplanar, multiecho imaging of the lumbar spine was performed without IV contrast. FINDINGS: For purposes of numbering on this exam, the L5-S1 disc space is assigned to axial image 23 of 25. An old mild L3 compression deformity is unchanged. No acute lumbar spine fractures are present. There is no marrow replacement. There is no intracanalicular mass or fluid collection. Conus terminates at the lower T12 level. L1-2: The central canal and neural foramen are patent. L2-3: The central canal and neural foramen are patent. L3-4: There is slight disc space narrowing with minimal disc bulge. There is moderate facet arthrosis. The central canal and neural foramen are patent. L4-5: There is moderate facet arthrosis. The central canal and neural foramen are patent. L5-S1: Minimal disc bulge. There is moderate facet arthrosis. The central canal and neural foramen are patent. IMPRESSION: 1. No acute process within the lumbar spine prior MRI. 2. No change in old mild L3 compression deformity. No acute lumbar spine fractures. 3. Minimal degenerative disc disease and moderate facet arthrosis within the lumbar spine. Patent central canal and neural foramen. ACT 112: Negative or not required by law. Electronically signed by: Fredis Zamora M.D. 05/22/2025 1:53 PM
[2025-05-23] MEDS: CYCLOBENZAPRINE HCL 10 MG TAB PO SCH (13:04)
[2025-05-23 14:37] VITALS: BP 134/75; PULSE 80; TEMP 98.4
[2025-05-23] MEDS: MAGNESIUM CITRATE 296 ML/BTL PO STA (16:25)
[2025-05-23] MEDS: OPTIRAY 320 100ml IV ONE (17:41)
--- NOTE | 2025-05-23 18:29 | CT Scan Report ---
EXAMINATION: CT of the abdomen and pelvis performed after the administration of IV contrast TECHNIQUE: Helical CT images from the lung bases through the symphysis pubis were obtained with contrast. Coronal and sagittal reformatted images were generated at a workstation for further assessment. Dose reduction techniques were achieved by using automatic exposure control and/or adjustment of mA and/or kV according to patient size and/or use of iterative reconstruction technique. COMPARISON: None HISTORY: Abdominal pain FINDINGS: Lower chest: No consolidation. No pleural effusion or pneumothorax. Liver: There is a small cyst. No suspicious liver lesions. Portal veins appear patent. Gallbladder: Cholelithiasis. No evidence of acute cholecystitis. Spleen: Normal size. Pancreas: No suspicious pancreatic lesions. The pancreatic duct is not dilated. Adrenal glands: No adrenal nodules. Kidneys: No hydronephrosis or obstructing renal stones. Bladder / Pelvic organs: There is a left-sided calcified uterine fibroid measuring 2.6 cm. No suspicious adnexal mass. Bowel: No bowel obstruction. No abnormal bowel wall thickening. The appendix is nonvisualized. Moderate colonic stool. There are fluid-filled loops of nondilated small bowel in the right lower quadrant. Lymph nodes: No retroperitoneal, mesenteric, or pelvic lymphadenopathy. Peritoneum / Retroperitoneum: No free fluid or air within the abdomen. Vessels: No infrarenal aortic aneurysm. Bones and soft tissues: No suspicious lesion in the bones. IMPRESSION: No acute intra-abdominal process. Several fluid-filled loops of nondilated small bowel in the right lower quadrant are compatible with enteritis. Cholelithiasis. Electronically signed by Michael Jenkins 05-23-2025 6:28 PM
--- NOTE | 2025-05-23 18:51 | Discharge Summary ---
Discharge Summary Date of Service May 23, 2025 Principal Dx & Hospital Course #1 = Principal Diagnosis (1) Intractable low back pain: To address #1, patient was started on tylenol 650mg PO q6 prn pain 1-3, headache, temp > 100.4 degrees Fahrenheit, morphine 2mg IV q2 prn pain 4-10. Patient underwent PT/OT/Case Mgm't Service evaluations to expedite D/C to SNF for short-term rehab and continued pain management as there were/are no acute medical issues on observation date 05/21/2025, or subsequent dates 05/22/2025 and 05/23/2025. Patient was cleared by PT/OT Services for D/C back to home, and yet, patient asked if she could be discharged to [facility]; subsequently, patient's insurance company refused to authorize coverage for acute rehab services @ [facility], citing patient's ability to walk unassisted for at least 250 feet with PT Service on 05/23/2025. Patient was also seen by her own Pain Management Dr. Osbaldo Eng on 05/23/2025, and who recommended that patient be discharged back to her home on 05/23/2025 with flexeril 10mg PO tid, outpatient Physical Therapy Service evaluations, follow visit in her Pain Management Clinic, outpatient lower extremity EMG (to evaluate her complaints of right foot/toe numbness/pain), and outpatient Podiatry Service evaluation (to evaluate her complaints of right foot/toe numbness/pain). of note, Dr. Eng did not recommend any further/future epidural steroid injections as "patient has received 2 steroid injections and they have not worked for this patient." Patient also underwent MRI lumbar spine without contrast (05/22/2025, 11:33am): 1. No acute process within the lumbar spine prior MRI. 2. No change in old mild L3 compression deformity. No acute lumbar spine fractures. 3. Minimal degenerative disc disease and moderate facet arthrosis within the lumbar spine. Patent central canal and neural foramen. Patient also underwent MRI thoracic spine without contrast (05/22/2025, 11:33am): 1. No acute fracture, subluxation or significant marrow edema. 2. Mild discogenic degeneration of the mid thoracic spine without significant central canal or foraminal narrowing. 3. Distended gallbladder with cholelithiasis. Patient also underwent CT abd/pelvis with IV contrast (05/23/2025, 5:20pm): 1. No acute intra-abdominal process. 2. Several fluid-filled loops of nondilated small bowel in the right lower quadrant are compatible with enteritis. (cf., patient has no complaints of nausea/vomit/diarrhea/abdominal pain/pelvic pain to suggest enteritis; patient only reports that she had no bowel movement for the past 3 days). 3. Cholelithiasis. Patient was subsequently discharged back to her home on 05/23/2025 with electronic prescriptions sent to her [facility] store #[id number], [address] [place] [address] on for the following medications: a. flexeril 10mg PO tid, #90 tablets, no refills. b. morphine 15mg PO q6 prn pain, #20 tablets, no refills. c. prednisone 10mg PO daily, # 3 tablets, no refills. d. protonix 40mg PO daily, # 3 tablets, no refills. (2) Left streak ovary: To address #2, patient was advised to undergo outpatient pelvic U/S, which can be coordinated with her PCP Dr. Ambreen Walker. Admission HPI Per Admitting Provider 65 years old Jordanian-speaking Kazakh female with PMH of FULL CODE @ home, overweight with BMI 27.0 (height 160.0 cm; weight 69.2 kg), who reports: "On September 14, 2024, I felt a wood tile installation helper my right butt. On October 10, 2024, the day before 2023, I felt a pain in my right butt. I did not fall do wn. I did not bump into anything or hit anything, and nothing bumped into me or hit me in my right butt. Still, I could not walk because of that pain in my right but. So, on October 22, 2024, I got a prescription for prednisone 10mg a day from my PCP Dr. Ambreen Walker, and that helped me for a while. Then, the pain in my right butt came back. So, on January 04, 2025, I got a prescription for methylprednisolone 4mg a day from my PCP Dr. Ambreen Walker, and that helped me for a while. Then, the pain in my right butt came back. So, on January 17, 2025, I got an epidural injection in my lower back from [facility] Dr. Osbaldo Eng, and that helped me for a while. Then, the pain in my right butt came back. So, on April 17, 2025, I got 3 pain shots in my butt from [facility] Dr. Evelin Cabrera, and that helped me for a while. Then, the pain in my right butt came back and it is going down to my right foot and all of the toes in my right foot. First, my right foot and toes felt numb, now they feel tingly. I don't know if the pain in my right foot has anything to do with the fact that I have not had a bowel movement since Tuesday (May 17, 2025). Normally, I have a bowel movement every day. I do not feel any belly pain; I do not feel nauseated, and I am not having any vomit or diarrhea. I got a morphine shot (e.g., morphine 2mg IV x 1 dose on 05/21/2025, 9:41am) and that helped me a lot. The pain in my right butt was an 8 (out of 10 point intensity scale) before the morphine shot (e.g., morphine 2mg IV x 1 dose on 05/21/2025, 9:41am). Now, it is a 2 (out of 10 point intensity scale)." Patient denies antecedent/coincident fevers, chills, diaphoresis, cough, wheeze, sore throat, hemoptysis, chest pains, palpitations, pleurisy, nausea, vomiting, diarrhea, abdominal pain, pelvic pain, hematemesis, hematochezia, melena, hematuria, dysuria, frequency, urgency, headaches, dizziness, lightheadedness, visual changes, hearing changes, weakness, falls, syncope, trauma, travel history, sick contacts, or food/drug ingestions novel or new. All other review of systems are reported as negative by the patient on observati on date 05/21/2025. In [facility] ER bed #C4, patient was afebrile @ 36.5 degrees Celsius, HR 113, RR 19, O2 sat 97% on room air, and BP 149/72 (05/21/2025, 8:50am). Exam was noted for positive radiculopathy on right straight leg raising, not left straight leg raising. In addition, patient demonstrated 5/5 motor strength in all 4 extremities, both proximally and distally, with no myoclonus, tremors, or tics. In addition, there was no perineal numbness, urinary/fecal incontinence, or decrement in 2 point discrimination with a 4mm spread on either lower extremity. Labs in [facility] ER bed #C4 included: WBC 10.3, N76 L19 M4, Hb 15.1, MCV 88.5, MCHC 35.2, platelet 363 (05/21/2025, 9:39am). Na 136, K 3.5, BUN 12, creatinine 0.82, glucose 118, Ca 9.7, Mg 2.3, AST 22, ALT 29, ALK PHOS 53, TBili 0.4 (05/21/2025, 9:39am). U/A: LE-, nitrite- (05/21/2025, 9:39am). Additional testing in [facility] ER bed #C4 included: CT lumbar spine without contrast (05/21/2025, 9:32am): 1. No acute fracture or subluxation. 2. Multilevel degenerative changes of the lumbar spine redemonstrated. 3. Mild chronic L3 compression deformity without retropulsion. CT pelvis without contrast (05/21/2025, 9:32am): 1. No acute bony abnormality is identified. 2. 2.8 cm calcified L adnexal structure likely represents the left ovary, or less likely a pedunculated fibroid. Left ovary was normal in appearance on 2006 pelvic U/S and this is of indeterminate etiology and significance. Nonemergent pelvic U/S is recommended. Patient was subsequently placed in OBSERVATION on the hospitalist service @ [facility] on 05/21/2025 with the following diagnoses: 1. Intractable right gluteal pain due to chronic L3 compression fracture. 2. Incidental finding of 2.8 cm L adnexal structure, most likely to represent L ovary. To address #1, patient was started on tylenol 650mg PO q6 prn pain 1-3, headache, temp > 100.4 degrees Fahrenheit, morphine 2mg IV q2 prn pain 4-10. Patient underwent PT/OT/Case Mgm't Service evaluations to expedite D/C to SNF for short-term rehab and continued pain management as there were/are no acute medical issues on observation date 05/21/2025, or subsequent dates 05/22/2025 and 05/23/2025. Patient was cleared by PT/OT Services for D/C back to home, and yet, patient asked if she could be discharged to [facility]; subsequently, patient's insurance company refused to authorize coverage for acute rehab services @ [facility], citing patient's ability to walk unassisted for at least 250 feet with PT Service on 05/23/2025. Patient was also seen by her own Pain Management DrZe Eng on 05/23/2025, and who recommended that patient be discharged back to her home on 05/23/2025 with flexeril 10mg PO tid, outpatient Physical Therapy Service evaluations, follow visit in her Pain Management Clinic, outpatient lower extremity EMG (to evaluate her complaints of right foot/toe numbness/pain), and outpatient Podiatry Service evaluation (to evaluate her complaints of right foot/toe numbness/pain). of note, Dr. Eng did not recommend any further/future epidural steroid injections as "patient has received 2 steroid injections and they have not worked for this patient." Patient also underwent MRI lumbar spine without contrast (05/22/2025, 11:33am): 1. No acute process within the lumbar spine prior MRI. 2. No change in old mild L3 compression deformity. No acute lumbar spine fractures. 3. Minimal degenerative disc disease and moderate facet arthrosis within the lumbar spine. Patent central canal and neural foramen. Patient also underwent MRI thoracic spine without contrast (05/22/2025, 11:33am): 1. No acute fracture, subluxation or significant marrow edema. 2. Mild discogenic degeneration of the mid thoracic spine without significant central canal or foraminal narrowing. 3. Distended gallbladder with cholelithiasis. Patient also underwent CT abd/pelvis with IV contrast (05/23/2025, 5:20pm): 1. No acute intra-abdominal process. 2. Several fluid-filled loops of nondilated small bowel in the right lower quadrant are compatible with enteritis. (cf., patient has no complaints of nausea/vomit/diarrhea/abdominal pain/pelvic pain to suggest enteritis; patient only reports that she had no bowel movement for the past 3 days). 3. Cholelithiasis. Patient was subsequently discharged back to her home on 05/23/2025 with electronic prescriptions sent to her [facility] store #[id number], [address] [place] [address] on for the following medications: a. flexeril 10mg PO tid, #90 tablets, no refills. b. morphine 15mg PO q6 prn pain, #20 tablets, no refills. c. prednisone 10mg PO daily, # 3 tablets, no refills. d. protonix 40mg PO daily, # 3 tablets, no refills. To address #2, patient was advised to undergo outpatient pelvic U/S, which can be coordinated with her PCP Dr. Ambreen Walker. Discharge Exam Constitutional General: Comfortable, coherent, cooperative. Awake, alert. Not con fused, lethargic, or obtunded. Patient speaks in complete, fluent, and articulate sentences without pause, interruption, cough, or wheeze. HEENT: Normocephalic, atraumatic. Pupils equally round and reactive to light. No nystagmus, gaze paresis, anisocoria, miosis, mydriasis, hyphema, scleral injection, conjunctivitis, or pterygium. No otorrhea. No pharyngeal erythema, edema, or discharge. Neck: Supple, no stridor, bruit, goiter, or hepato-jugular reflux. Jugular venous pressure is estimated to be 3 cm above the sternal angle of Renaldo, which in turn, is 5 cm above the level of the right atrium; with jugular venous pressure estimated to be 8 cm, then, there is no jugular venous distention on 05/23/2025. Lymphatics: No cervical (anterior/posterior), supraclavicular, infraclavicular, axillary, epitrochlear, or inguinal adenopathy. Chest: Symmetric rise and fall with respirations. Non-tender to palpation. Lungs: Clear to auscultation and percussion. No audible expiratory wheeze, egophony, pectoriloquy, increase in tactile fremitus, or flatness/dullness to percussion at the bases. Heart: RRR. S1 and S2 noted. No S3 or S4 summation gallop. No tripartite friction rub. Grade II/ early systolic murmur @ LLSB without radiation to the carotids, axilla, or back, and which remains invariant in rega rds to the respiratory cycle. Abdomen: Soft, non-distended, non-tender. No rebound, guarding, Farmer's sign, or organomegaly. Bowel sounds auscultated in all 4 quadrants. Extremities: No clubbing, cyanosis, or edema in upper extremities or lower extremities bilaterally. 2+ pedal pulses bilaterally. Skin: No decubitus ulcer or enanthem. Genito-urinary: No urethral discharge. No miller catheter. Neurology: Alert and oriented in regards to person, place, time, and situation. DTR+. Positive radiculopathy on right straight leg raising, not left straight leg raising. In addition, patient demonstrated 5/5 motor strength in all 4 extremities, both proximally and distally, with no myoclonus, tremors, or tics. In addition, there was no perineal numbness, urinary/fecal incontinence, or decrement in 2 point discrimination with a 4mm spread on either lower extremity. Psychiatry: No homicidal ideation. No suicidal ideation. No flat affect; smiles appropriately. Discharge Plan Discharge Items Patient Disposition: Home - Home Health Services Reason For Visit: CHRONIC L3 COMPRESSION FRACTURE WITH INTRACTABLE P Discharge Diagnosis: Chronic L3 compression fracture with intractable pain Condition on Discharge: Good Activity: Resume your previous activity Lifting: Gradually increase as tolerated Bathing: No limitations Sexual Activity: When tolerated Exercise/Sports: Gradually increase as tolerated Driving/Machine Use: No limitations Non-emergency contact: Primary Care Provider Call non-emergency contact if: you have any medication questions Follow-up/Referrals: Osbaldo Eng MD, FIPP [Physician] - 05/29/25 2:15 pm (See your Pain Management Dr. Osbaldo Eng within 5-7 days of hospital discharge after starting flexeril 10mg PO tid (start date/time, 05/23/2025, 2:00pm).) Ambreen Walker DO [Primary Care Provider] - 05/27/25 8:30 am (APPT WITH DR RAMOS. [address] [place] [address] [address] [place] [address]) Diet: Heart Healthy Addtl Attending Provider Instructions: 1. See your PCP Dr. Ambreen Walker within 5-7 days of hospital discharge to arrange for (1) outpatient lower extremity EMG evaluation for right leg pain, and (2) outpatient Podiatry Clinic evaluation for right foot pain. In the meantime, continue with outpatient Physical Therapy Clinic visits. 2. See your Pain Management Dr. Osbaldo Eng within 5-7 days of hospital dis charge after starting flexeril 10mg PO tid (start date/time, 05/23/2025, 2:00pm). In the meantime, continue with outpatient Physical Therapy Clinic visits. Pending Studies at Discharge: No Studies:: (1) outpatient lower extremity EMG evaluation for right leg pain (2) outpatient Podiatry Clinic evaluation for right foot pain. In the meantime, continue with outpatient Physical Therapy Clinic visits. Stand-Alone Forms: My official.fm, Smoking Cessation Medications and DC Order Prescriptions: New morphine 15 mg tablet 15 mg PO Q6H PRN (Reason: pain) Qty: 20 0RF cyclobenzaprine 10 mg Tablet 10 mg PO TID Qty: 90 0RF prednisone 10 mg Tablet 10 mg PO DAILY Qty: 3 0RF pantoprazole 40 mg Tablet,Delayed Release (Dr/Ec) 40 mg PO QAM Qty: 3 0RF Continued duloxetine 20 mg capsule,delayed release(DR/EC) 20 mg PO DAILY Qty: 90 0RF Hold Instructions: wants to continue holding latanoprost 0.005 % drops 1 drp OPB HS cyclosporine [Restasis] 0.05 % dropperette 1 drp OPB Q12H chlorthalidone 25 mg tablet 6.25 mg PO DAILY Qty: 45 2RF acetaminophen 500 mg Tablet 500 mg PO Q6H PRN (Reason: Pain) prednisone 20 mg tablet 20 mg PO DIRECTED Rx Instructions: Start Date 05/14/25 x 15 day supply: 3 tablets PO x 3 days; 2 tablets PO x 3 days; 1 tablets PO x 3 days; 1/2 tablet PO x 4 days Krames/Other Patient Handouts: Relieving Back Pain Admission Data Admit Date/Time: 05/21/25 12:20 Attending Provider: Caesar Mendez Admit Provider: Caesar Mendez Primary Care Provider: Ambreen Walker Other Providers: Fritz Wiley; Michelle Rosado at [place]; [place]; [facility]; Osbaldo Eng Other Interventions: Discharge Summary Assessment (RN) Last Done: 05/23/25 13:16 Hospital Stay Data Consultations 05/21/25 11:23 ED Decision to Admit Stat 05/22/25 13:05 Consult Pain Management Routine Diagnostic Imagining Performed 05/21/25 09:32 CT lumbar spine wo con Stat CT pelvis wo con Stat 05/22/25 11:33 MRI Lumbar Spine [MR lumbar spine wo con] Stat MRI Thoracic [MR thoracic spine wo con] Stat 05/23/25 17:20 CT Abd and Pelvis [CT abd pelvis IV con only] Stat Pending Results Patient Have Any Pending Studies at Discharge: No Discharge Instructions Given to Patient (Per Discharging Provider) 1. See your PCP Dr. Ambreen Walker within 5-7 days of hospital discharge to arrange for (1) outpatient lower extremity EMG evaluation for right leg pain, and (2) outpatient Podiatry Clinic evaluation for right foot pain. In the meantime, continue with outpatient Physical Therapy Clinic visits. 2. See your Pain Management DrZe Eng within 5-7 days of hospital discharge after starting flexeril 10mg PO tid (start date/time, 05/23/2025, 2:00pm). In the meantime, continue with outpatient Physical Therapy Clinic visits. Total Time Total Time Spent Total Time Spent (In Minutes): 35 minutes. Of this time period, 19 minutes were spent in coordinating patient's discharge. Coding Level of Care Code 82657 INP/OBS DISCH >30 MIN Diagnoses Intractable low back pain M54.59 Left streak ovary Q50.32
== END 2025-05-23 20:00 | disposition home health service (06) ==
LOC: EDINP 08:47 → ED 08:47 → 3N 13:34